=== PATIENT | male | born 1965 | race African-American/Black ===

== ENCOUNTER 2016-11-05 13:31 | Outpatient (CLI) | payer MEDICARE, MEDICAID ==
[2016-11-05 14:12] LABS: ALT (SGPT) 25 U/L (0-55); AST (SGOT) 21 U/L (5-34); Albumin 4.2 g/dL (3.5-5.0); Alkaline Phosphatase 73 U/L (40-150); Anion Gap 14 mmol/L (10-20); BUN (Urea Nitrogen) 15 mg/dL (8.9-20.6); Bilirubin, Total 0.4 mg/dL (0.2-1.2); Calc. Creatinine Clearance 0 mL/min (70-130); Calcium 9.3 mg/dL (7.8-10.44); Carbon Dioxide 26 mmol/L (22-29); Cardiac Risk 2.6 (Less than 4.5); Chloride 102 mmol/L (98-107); Cholesterol 108 mg/dL (< 200 Desired); Estimated GFR-MDRD 87; Globulin 3.2 g/dL (2.4-3.5); Glucose 112 mg/dL (70-105); HDL Cholesterol 42 mg/dL (>60 Neg Risk); Hemoglobin A1c 5.1 % (4.0-6.0); LDL Cholesterol, Calculated 30 mg/dL; Potassium 3.8 mmol/L (3.5-5.1); Protein, Total 7.4 g/dL (6.0-8.3); Sodium 138 mmol/L (136-145); Triglycerides 182 mg/dL (Less than 150)
[2016-11-05 14:25] LABS: Eosinophils 2 % (0-10); Hemoglobin 12.6 g/dL (14.0-18.0); Lymphocytes 47 % (21-51); MDiff Complete? YES; Mean Corpuscular HGB CONC 33.4 g/dL (32.0-36.0); Mean Corpuscular Hemoglobin 31.9 pg (27.0-31.0); Mean Corpuscular Volume 95.5 fl (80.0-94.0); Mean Platelet Volume 8.5 fL (7.4-10.4); Monocytes 2 % (0-10); Neutrophil 49 % (42-75); Platelet Count 297 thou/uL (130-400); RBC Distribution Width 12.6 % (11.5-14.5); Red Blood Cell (RBC) Count 3.94 mill/uL (4.70-6.10); White Blood Cell (WBC) Count 8.2 thou/uL (4.8-10.8)
== END 2016-11-05 13:32 ==
LOC: MADLAB 13:31
PROVIDERS: ATTEND Obstetrics & Gynecology
DX: I10 Essential (primary) hypertension (principal); Z83.3 Family history of diabetes mellitus
CPT/HCPCS: 36415; 80053; 80061; 83036; 85025

== ENCOUNTER 2018-10-20 10:11 | Emergency (ER) | payer MEDICARE, MEDICAID | END 2018-10-20 11:05 | disposition home or self-care (01) | LOC: MADERS 10:11 | DX: J20.9 Acute bronchitis, unspecified (principal); I10 Essential (primary) hypertension; Z79.899 Other long term (current) drug therapy | CPT/HCPCS: 99283 ==